=== PATIENT | female | born 1975 | race American Indian/Alaskan Native ===

== ENCOUNTER 2022-09-15 11:23 | Outpatient (CLI) | payer BC | END 2022-09-15 23:59 | disposition home or self-care (01) | LOC: LAB SPEC 11:23 | PROVIDERS: ATTEND Orthopaedic Surgery | DX: M71.062 Abscess of bursa, left knee (principal) | CPT/HCPCS: 87070; 87075 ==

== ENCOUNTER 2022-10-26 08:11 | Inpatient (IN) | payer BC, OTHER ==
[2022-10-24 14:28] LABS: BASOPHILS # (AUTO) 0.1 X10'3 (0-0.2); EOSINOPHILS # (AUTO) 0.1 X10'3 (0-0.9); EOSINOPHILS % (AUTO) 1.9 % (0-6); LYMPHOCYTES # (AUTO) 1.9 X10'3 (1.1-4.8); LYMPHOCYTES % (AUTO) 29.9 % (21-51); MEAN CORPUSCULAR HEMOGLOBIN 25.2 PG (27.0-31.0); MEAN CORPUSCULAR HGB CONC 31.8 g/dL (33.0-36.5); MEAN CORPUSCULAR VOLUME 79.3 FL (78-98); MEAN PLATELET VOLUME 7.5 FL (7.4-10.4); MONOCYTES # (AUTO) 0.5 X10'3 (0-0.9); MONOCYTES % (AUTO) 8.9 % (2-12); NEUTROPHILS # (AUTO) 3.6 X10'3 (1.8-7.7); NEUTROPHILS % (AUTO) 58.3 % (42-75); PRE OP HEMATOCRIT 31.2 % (35.0-45.0); PRE OP PLATELET COUNT 350 X10'3 (140-440); RED BLOOD COUNT 3.94 X10'6 (4.20-5.60); RED CELL DISTRIBUTION WIDTH 19.4 % (11.5-14.5)
[2022-10-24 14:31] LABS: PRE OP HEMOGLOBIN 9.9 g/dL (12.0-16.0)
[2022-10-24 14:43] LABS: HCG SERUM QL NEGATIVE
[2022-10-24 14:46] LABS: ALBUMIN 3.7 G/DL (3.4-5.0); ALBUMIN/GLOBULIN RATIO 0.9 (1.1-1.5); ALKALINE PHOSPHATASE 80 IU/L (46-116); BLOOD UREA NITROGEN 11 MG/DL (7-18); BUN/CREATININE RATIO 17.7 (10.0-20.0); CALCIUM 8.6 MG/DL (8.5-10.1); CHLORIDE 105 MMOL/L (99-107); CREATININE 0.62 MG/DL (0.40-0.90); PRE OP ALT 29 U/L (30-65); PRE OP ANION GAP 12 (8-16); PRE OP AST 27 U/L (10-37); PRE OP BILIRUB, TOTAL 0.3 MG/DL (0.0-1.0); PRE OP GLUCOSE 101 MG/DL (70-104); PRE OP POTASSIUM 3.9 MMOL/L (3.4-5.1); PRE OP SODIUM 140 MMOL/L (135-145); TOTAL CARBON DIOXIDE 23.3 MMOL/L (24-32); TOTAL PROTEIN 7.8 G/DL (6.4-8.2); eGFR > 90 ML/MIN
[2022-10-24 15:09] LABS: ANISOCYTOSIS 2+; MICROCYTOSIS 1+; PLATELET ESTIMATE NORMAL
[2022-10-24 15:11] LABS: LARGE PLATELETS FEW
[~2022-10-26] VITALS: Ht 170.2 cm; Wt 122.0 kg
[2022-10-26] VITALS (15 sets, daily range): BP systolic 143–187; BP diastolic 51–107
[~2022-10-26 08:11] MED LIST: CLIN300C54 PO; MUPI15CR12 BOTHNARES; OREG1500 PO; famotidine 20mg tablet PO ONE; ringers solution, lacted 1,000 ML IV SCH
[2022-10-26] MEDS ORDERED: labetalol 20mg/4ml (5mg/ml) syringe IV PRN (09:00)
[2022-10-26] MEDS ORDERED: fentaNYL/PF 50MCG/1 ML 2ML syringe IV PRN (09:00)
[2022-10-26] MEDS ORDERED: ringers solution, lacted 1,000 ML IV SCH (09:00)
[2022-10-26] MEDS ORDERED: ondansetron/PF 4mg/2ml inj IV PRN (09:00)
[2022-10-26] MEDS ORDERED: hydrALAZINE 20mg/ml inj. IV PRN (09:00)
[2022-10-26] MEDS ORDERED: morphine 2 MG/ML inj. syringe IV PRN (09:00)
[2022-10-26] MEDS ORDERED: morphine 4 MG/ML inj SYRINge IV PRN (09:00)
--- NOTE | 2022-10-26 09:00 | NUR ---
PT STATES HX OF HTN WITH PREVIOUS SURGERIES IN THE PRE-OP AREA, "NERVOUS". RETURNS TO NORMAL POST OP Addendum: 10/26/22 at 0958 by Polina Wilson RN Amended: Links added.
[2022-10-26] MEDS ORDERED: ROPIVAcaine 0.5% (5mg/ml) 30ml vial ONE ×2 (10:08→11:03)
[2022-10-26] MEDS ORDERED: epiNEPHrine 1 mg/ml inj ONE (10:08)
[2022-10-26] MEDS ORDERED: vancomycin 1,000mg inj ONE (10:08)
[2022-10-26] MEDS ORDERED: morphine 10mg/ml inj. ONE (10:19)
[2022-10-26] MEDS ORDERED: gentamicin 40 MG/1 ML inj ONE (10:20)
[2022-10-26] MEDS ORDERED: tobramycin 40mg/ml inj ONE (10:20)
[2022-10-26] MEDS ORDERED: ketorolac trometh. 30mg/ml inj. ONE (11:02)
[2022-10-26] MEDS ORDERED: MIDAZolam 1 MG/ML 5ML VIAL ONE (11:02)
[2022-10-26] MEDS ORDERED: ondansetron/PF 4mg/2ml inj ONE (11:02)
[2022-10-26] MEDS ORDERED: dexamethasone sod phosphate 4mg/ml inj. ONE (11:02)
[2022-10-26] MEDS ORDERED: propofol inj 20 ML IV ONE (11:02)
[2022-10-26] MEDS ORDERED: LIDOcaine 2% (20mg/ml) 5ml vial ONE (11:02)
[2022-10-26] MEDS ORDERED: fentaNYL/PF 50MCG/1 ML 2ML syringe ONE (11:02)
[2022-10-26] MEDS ORDERED: acetaminophen 1,000mg/100ml IV 100 ML IV ONE (11:03)
[2022-10-26] MEDS ORDERED: sevoflurane 250ml liquid IH ONE (11:05)
[2022-10-26] MEDS ORDERED: labetalol 20mg/4ml (5mg/ml) syringe IV ONE (11:22)
--- NOTE | 2022-10-26 13:30 | NUR ---
Received from OR via BED, accompanied by Anesthesiologist and report given by Anesthesiologist. PATIENT WAKING UP, c/o PAIN see emar, V/S WNL, SCD ON, 20G TO LUE, left knee dressing w/ wv at 75suction cdi with no leaks detected w/ immobilizer on
[2022-10-26] MEDS ORDERED: oxyCODONE IR 5mg (immed. release) tablet PO PRN (13:35)
[2022-10-26] MEDS ORDERED: diphenhydrAMINE 25mg capsule PO PRN ×2 (13:35)
[2022-10-26] MEDS ORDERED: naloxone 0.4 mg/ml inj IV PRN (13:35)
[2022-10-26] MEDS ORDERED: magnesium hydroxide 30ml (MOM) UD suspension PO PRN (13:35)
[2022-10-26] MEDS ORDERED: acetaminophen 325mg tablet PO PRN (13:35)
[2022-10-26] MEDS ORDERED: bisacodyl 10mg suppository rectal RC PRN (13:35)
[2022-10-26] MEDS ORDERED: HYDROmorphone inj. 0.5 MG/0.5 ML DISP.SYRIN IV PRN (13:35)
[2022-10-26] MEDS: fentaNYL/PF 50MCG/1 ML 2ML syringe IV PRN ×2 (13:37→13:43)
--- NOTE | 2022-10-26 14:15 | NUR ---
PATIENT HAS MET ALL CRITERIA FOR TRANSFER TO THE SURGICAL FLOOR. VSS. DRESSINGS INTACT. BED LOW, CALL LIGHT PRESENT AND 2 RAILS UP. RN PRESENT TO ACCEPT CARE OF PATIENT AND REPORT HAS BEEN CALLED. ALL QUESTIONS ANSWERED TO ACCEPTING RN. Addendum: 10/26/22 at 1427 by Ulysses Hernandez RN Amended: Links added.
--- NOTE | 2022-10-26 14:18 | NUR ---
Received patient to room 352 via bed accompanied by x1 staff and spouse. Patient alert and oriented with c/o pain 5/10 to right knee. Right knee wound vac dressing CDI, suctioning at 75 with no issues, right knee immobilizer on. Post op vitals initiated. Patient oriented to room and call light. Call light placed within reach.
[2022-10-26] MEDS: acetaminophen 325mg tablet PO SCH ×2 (14:32→19:25)
[2022-10-26] MEDS: oxyCODONE IR 5mg (immed. release) tablet PO PRN ×2 (14:32→22:51)
--- NOTE | 2022-10-26 18:15 | NUR ---
Problems reprioritized. Patient report given, questions answered & plan of care reviewed with NGOC Vera.
--- NOTE | 2022-10-26 18:43 | NUR ---
Patient in room [facility] 352. I have received report from Zo GROSSMAN and had the opportunity to ask questions and assume patient care.
[2022-10-26] MEDS: HYDROmorphone 1 mg/ml syringe IV PRN (19:17)
[2022-10-26] MEDS: potassium Cl 20mEq in NS 1,000 ML IV SCH (19:20)
[2022-10-26] MEDS: vancomycin/NS 1 GM ADD-VANTAGE 250 ML IV SCH (19:20)
[2022-10-26] MEDS: ondansetron/PF 4mg/2ml inj IV PRN (19:31)
[2022-10-26] MEDS: sennosides 8.6mg tablet PO SCH (22:50)
[2022-10-27] MEDS: acetaminophen 325mg tablet PO SCH ×4 (02:49→19:31)
[2022-10-27] MEDS: HYDROmorphone 1 mg/ml syringe IV PRN ×2 (02:50→11:33)
[2022-10-27] MEDS: potassium Cl 20mEq in NS 1,000 ML IV SCH ×2 (02:50→05:35)
[2022-10-27] MEDS: ondansetron/PF 4mg/2ml inj IV PRN ×2 (02:55→12:11)
--- NOTE | 2022-10-27 04:41 | NUR ---
patient up to BR x2, medicated as per EMAR for pain and nausea with good result. continues with knee immobilizer, VSS. will continue to monitor
--- NOTE | 2022-10-27 06:12 | NUR ---
Problems reprioritized. Patient report given, questions answered & plan of care reviewed with Zo GROSSMAN.
[2022-10-27 06:57] VITALS: BP 145/80
[2022-10-27] MEDS: oxyCODONE IR 5mg (immed. release) tablet PO PRN ×3 (07:53→19:33)
[2022-10-27] MEDS: vancomycin/NS 1 GM ADD-VANTAGE 250 ML IV SCH ×2 (08:10→19:31)
[2022-10-27] MEDS: aspirin 325mg tablet PO SCH (08:11)
[2022-10-27 11:38] VITALS: BP 166/102
[2022-10-27 11:53] LABS: C-REACTIVE PROTEIN 0.05 MG/DL (0.0-0.5)
[2022-10-27] MEDS ORDERED: metoclopramide 5 mg/ml inj IV PRN (14:40)
[2022-10-27] MEDS: proCHLORperazine 10 MG/2 ml inj IV PRN (14:56)
[2022-10-27 15:03] LABS: BASOPHILS # (AUTO) 0.1 X10'3 (0-0.2); BASOPHILS % (AUTO) 0.8 % (0-1); EOSINOPHILS % (AUTO) 0.1 % (0-6); HEMATOCRIT 26.6 % (35.0-45.0); HEMOGLOBIN 8.3 g/dl (12.0-16.0); LYMPHOCYTES # (AUTO) 2.1 X10'3 (1.1-4.8); LYMPHOCYTES % (AUTO) 22.7 % (21-51); MEAN CORPUSCULAR HEMOGLOBIN 24.8 PG (27.0-31.0); MEAN CORPUSCULAR HGB CONC 31.2 g/dL (33.0-36.5); MEAN CORPUSCULAR VOLUME 79.5 FL (78-98); MEAN PLATELET VOLUME 8.1 FL (7.4-10.4); MONOCYTES # (AUTO) 0.8 X10'3 (0-0.9); MONOCYTES % (AUTO) 8.5 % (2-12); NEUTROPHILS # (AUTO) 6.3 X10'3 (1.8-7.7); NEUTROPHILS % (AUTO) 67.9 % (42-75); PLATELET COUNT 296 X10'3 (140-440); RED BLOOD COUNT 3.34 X10'6 (4.20-5.60); RED CELL DISTRIBUTION WIDTH 19.2 % (11.5-14.5); WHITE BLOOD COUNT 9.2 X10'3 (4.5-11.0)
[2022-10-27 15:08] LABS: ALANINE AMINOTRANSFERASE 23 U/L (12-78); ALBUMIN 3.3 G/DL (3.4-5.0); ALKALINE PHOSPHATASE 56 IU/L (46-116); ANION GAP 9 (8-16); ASPARTATE AMINO TRANSFERASE 11 U/L (10-37); BILIRUBIN,TOTAL 0.2 MG/DL (0.1-1.0); BLOOD UREA NITROGEN 9 MG/DL (7-18); BUN/CREATININE RATIO 12.5 (10.0-20.0); CALCIUM 8.4 MG/DL (8.5-10.1); CHLORIDE 108 MMOL/L (99-107); CREATININE 0.72 MG/DL (0.40-0.90); GLUCOSE 102 MG/DL (70-104); POTASSIUM 4.1 MMOL/L (3.5-5.1); SODIUM 140 MMOL/L (135-145); TOTAL CARBON DIOXIDE 23.5 MMOL/L (24-32); TOTAL PROTEIN 6.7 G/DL (6.4-8.2); eGFR 88 ML/MIN
[2022-10-27 15:39] LABS: ANISOCYTOSIS 2+; MICROCYTOSIS 1+; PLATELET ESTIMATE NORMAL
[2022-10-27 15:40] LABS: SCHISTOCYTES FEW
[2022-10-27 15:41] LABS: ROULEAUX 1+
--- NOTE | 2022-10-27 18:42 | NUR ---
Problems reprioritized. Patient report given, questions answered & plan of care reviewed with Lenoie, RN.
[2022-10-27] MEDS: celeCOXIB 100mg capsule PO SCH (19:32)
[2022-10-27 22:00] VITALS: BP 155/87
[2022-10-27] MEDS: sennosides 8.6mg tablet PO SCH (22:03)
--- NOTE | 2022-10-27 23:47 | NUR ---
Pt. is awake alert oriented in good spirits visitor at bedside. Pt. has a left knee wound vac and a left arm midline. Left foot pedal pulse palpable equal to right foot. C/o some numbness in left inner leg states PCP is aware. Ambulatory with assistance without complaints. Takes po meds and nutrition well. Plan; Pt. is anticipating going home soon with Midline and IV antibiotics.
[2022-10-28] MEDS: proCHLORperazine 10 MG/2 ml inj IV PRN ×2 (00:41→20:28)
[2022-10-28] MEDS: oxyCODONE IR 5mg (immed. release) tablet PO PRN ×2 (00:42→10:48)
[2022-10-28 01:03] VITALS: BP 155/83
[2022-10-28] MEDS: acetaminophen 325mg tablet PO SCH ×2 (01:12→08:57)
--- NOTE | 2022-10-28 06:00 | NUR ---
Bp rechecked after BRP and pain med given for 12/10 pain IV is converted to SL.. BP 179/94. Will request BP meds if taking at home. Reported to next shift to follow up with MD.
[2022-10-28] MEDS: HYDROmorphone 1 mg/ml syringe IV PRN ×2 (06:03→20:28)
[2022-10-28 06:52] LABS: BASOPHILS % (AUTO) 0.6 % (0-1); EOSINOPHILS # (AUTO) 0.1 X10'3 (0-0.9); EOSINOPHILS % (AUTO) 1.3 % (0-6); HEMATOCRIT 24.9 % (35.0-45.0); HEMOGLOBIN 7.9 g/dl (12.0-16.0); LYMPHOCYTES # (AUTO) 1.9 X10'3 (1.1-4.8); LYMPHOCYTES % (AUTO) 23.9 % (21-51); MEAN CORPUSCULAR HEMOGLOBIN 25.5 PG (27.0-31.0); MEAN CORPUSCULAR HGB CONC 31.8 g/dL (33.0-36.5); MEAN CORPUSCULAR VOLUME 80.2 FL (78-98); MEAN PLATELET VOLUME 7.5 FL (7.4-10.4); MONOCYTES # (AUTO) 0.6 X10'3 (0-0.9); NEUTROPHILS # (AUTO) 5.4 X10'3 (1.8-7.7); NEUTROPHILS % (AUTO) 67.2 % (42-75); PLATELET COUNT 246 X10'3 (140-440); RED BLOOD COUNT 3.11 X10'6 (4.20-5.60); RED CELL DISTRIBUTION WIDTH 19.5 % (11.5-14.5)
--- NOTE | 2022-10-28 06:55 | NUR ---
Patient in room [facility] 352. I have received report from mandie rn and had the opportunity to ask questions and assume patient care.
[2022-10-28 06:58] VITALS: BP 179/94
[2022-10-28 07:51] LABS: ALANINE AMINOTRANSFERASE 26 U/L (12-78); ALBUMIN/GLOBULIN RATIO 0.9 (1.1-1.5); ALKALINE PHOSPHATASE 59 IU/L (46-116); ANION GAP 8 (8-16); ASPARTATE AMINO TRANSFERASE 18 U/L (10-37); BILIRUBIN,TOTAL 0.3 MG/DL (0.1-1.0); BLOOD UREA NITROGEN 10 MG/DL (7-18); BUN/CREATININE RATIO 15.9 (10.0-20.0); CALCIUM 8.2 MG/DL (8.5-10.1); CHLORIDE 106 MMOL/L (99-107); CREATININE 0.63 MG/DL (0.40-0.90); GLUCOSE 80 MG/DL (70-104); POTASSIUM 3.8 MMOL/L (3.5-5.1); SODIUM 139 MMOL/L (135-145); TOTAL CARBON DIOXIDE 24.7 MMOL/L (24-32); TOTAL PROTEIN 6.2 G/DL (6.4-8.2); eGFR > 90 ML/MIN
[2022-10-28] MEDS: vancomycin/NS 1 GM ADD-VANTAGE 250 ML IV SCH (08:56)
[2022-10-28] MEDS: celeCOXIB 100mg capsule PO SCH ×2 (08:57→20:28)
[2022-10-28] MEDS: aspirin 325mg tablet PO SCH (08:57)
[2022-10-28 10:00] VITALS: BP 180/102
[2022-10-28] MEDS ORDERED: hydrALAZINE 20mg/ml inj. IV PRN ×2 (12:25→17:40)
[2022-10-28] MEDS ORDERED: acetaminophen 325mg tablet PO PRN (13:35)
[2022-10-28] MEDS ORDERED: hydrALAZINE 20mg/ml inj. IV ONE (14:15)
[2022-10-28 15:24] LABS: CREATININE 0.76 MG/DL (0.40-0.90); VANCOMYCIN,TROUGH 11.6 UG/ML (6.0-14.0); eGFR 82 ML/MIN
[2022-10-28] MEDS ORDERED: levoFLOXACIN-Levaquin 750MG/D5 150 ML IV STA (15:49)
[2022-10-28 16:00] VITALS: BP 203/105
[2022-10-28] MEDS ORDERED: enalaprilat dihydrate 2.5mg/2ml vial IV SCH (16:20)
[2022-10-28] MEDS ORDERED: LORazepam 2 mg/ml vial IV PRN (16:20)
[2022-10-28] MEDS: amLODIPine 5mg tablet PO SCH (16:46)
[2022-10-28 17:54] VITALS: BP 150/86
--- NOTE | 2022-10-28 20:07 | NUR ---
NOTIFIED DR BATISTA RE: PT BLOOD PRESSURE ELEVATED IN THE AM 180/102, HE ORDERED [address] BATISTA CAME INTO ROUND ON PT BP CONT TO BE ELEVATED 174/101. ORDERED ANOTHER 5MG HYDRALAZINE. BP CONT TO BE ELEVATED 203/105, NOTIFIED DR BATISTA. HE GOT HOSPITALIST ON BOARD, ORDERS FOR BP MEDS AND ATIVAN WERE GIVEN. PTS BP DECREASED TO 150/86. NOTIFIED
[2022-10-28] MEDS: sennosides 8.6mg tablet PO SCH (20:28)
[2022-10-28 22:00] VITALS: BP 141/77
[2022-10-29 06:26] LABS: BASOPHILS % (AUTO) 0.5 % (0-1); EOSINOPHILS # (AUTO) 0.1 X10'3 (0-0.9); EOSINOPHILS % (AUTO) 1.6 % (0-6); HEMATOCRIT 26.4 % (35.0-45.0); HEMOGLOBIN 8.4 g/dl (12.0-16.0); LYMPHOCYTES # (AUTO) 1.6 X10'3 (1.1-4.8); LYMPHOCYTES % (AUTO) 17.7 % (21-51); MEAN CORPUSCULAR HEMOGLOBIN 25.4 PG (27.0-31.0); MEAN CORPUSCULAR HGB CONC 31.7 g/dL (33.0-36.5); MEAN CORPUSCULAR VOLUME 80.1 FL (78-98); MEAN PLATELET VOLUME 7.8 FL (7.4-10.4); MONOCYTES # (AUTO) 0.9 X10'3 (0-0.9); MONOCYTES % (AUTO) 9.7 % (2-12); NEUTROPHILS # (AUTO) 6.4 X10'3 (1.8-7.7); NEUTROPHILS % (AUTO) 70.5 % (42-75); PLATELET COUNT 274 X10'3 (140-440); RED CELL DISTRIBUTION WIDTH 19.5 % (11.5-14.5)
[2022-10-29 06:38] LABS: ANION GAP 10 (8-16); BLOOD UREA NITROGEN 10 MG/DL (7-18); BUN/CREATININE RATIO 15.9 (10.0-20.0); CALCIUM 8.3 MG/DL (8.5-10.1); CHLORIDE 103 MMOL/L (99-107); CREATININE 0.63 MG/DL (0.40-0.90); GLUCOSE 89 MG/DL (70-104); POTASSIUM 3.5 MMOL/L (3.5-5.1); SODIUM 140 MMOL/L (135-145); TOTAL CARBON DIOXIDE 26.8 MMOL/L (24-32); eGFR > 90 ML/MIN
[2022-10-29 06:39] LABS: ALANINE AMINOTRANSFERASE 23 U/L (12-78); ALBUMIN 2.9 G/DL (3.4-5.0); ALBUMIN/GLOBULIN RATIO 0.8 (1.1-1.5); ALKALINE PHOSPHATASE 68 IU/L (46-116); ASPARTATE AMINO TRANSFERASE 12 U/L (10-37); BILIRUBIN,TOTAL 0.5 MG/DL (0.1-1.0); TOTAL PROTEIN 6.4 G/DL (6.4-8.2)
[2022-10-29 07:00] VITALS: BP 178/89
--- NOTE | 2022-10-29 07:00 | NUR ---
Patient in room [facility] 352. I have received report from Clarissa GROSSMAN and had the opportunity to ask questions and assume patient care.
[2022-10-29 07:05] LABS: ANISOCYTOSIS 2+; PLATELET ESTIMATE NORMAL; POLYCHROMASIA FEW; STOMATOCYTES 1+
[2022-10-29 08:00] VITALS: BP 167/86
[2022-10-29] MEDS: amLODIPine 5mg tablet PO SCH (08:15)
[2022-10-29] MEDS: celeCOXIB 100mg capsule PO SCH (08:15)
[2022-10-29] MEDS: aspirin 325mg tablet PO SCH (08:15)
[2022-10-29] MEDS ORDERED: AMLO5TAB4 PO (09:39)
[2022-10-29] MEDS: oxyCODONE IR 5mg (immed. release) tablet PO PRN (10:06)
[2022-10-29] MEDS ORDERED: LEVO-65 PO (10:30)
[2022-10-29 11:01] VITALS: BP 166/85
--- NOTE | 2022-10-29 12:00 | NUR ---
Received discharged orders, Reviewed with Patient and family. Escorted Patient and family to lobby with belongings.
== END 2022-10-29 11:50 | disposition home health service (06) | DRG 465 ==
LOC: PAS IN 08:11 → SUR 3N 14:19
PROVIDERS: ADMIT Orthopaedic Surgery; ATTEND Orthopaedic Surgery
PROC: 0JBP0ZZ Excision of Left Lower Leg Subcutaneous Tissue and Fascia, Open Approach (ICD-10-PCS; 2022-10-26)
PROC: 3E0U029 Introduction of Other Anti-infective into Joints, Open Approach (ICD-10-PCS; 2022-10-26)
PROC: 3E0T3BZ Introduction of Anesthetic Agent into Peripheral Nerves and Plexi, Percutaneous Approach (ICD-10-PCS; 2022-10-26)
PROC: 3E0T33Z Introduction of Anti-inflammatory into Peripheral Nerves and Plexi, Percutaneous Approach (ICD-10-PCS; 2022-10-26)
PROC: 0SPD04Z Removal of Internal Fixation Device from Left Knee Joint, Open Approach (ICD-10-PCS; principal; 2022-10-26 11:05)
PROC: 05HY33Z Insertion of Infusion Device into Upper Vein, Percutaneous Approach (ICD-10-PCS; 2022-10-27)
DX: T84.54XA Infection and inflammatory reaction due to internal left knee prosthesis, initial encounter (principal); B95.62 Methicillin resistant Staphylococcus aureus infection as the cause of diseases classified elsewhere; I10 Essential (primary) hypertension; F41.9 Anxiety disorder, unspecified; Y83.1 Surgical operation with implant of artificial internal device as the cause of abnormal reaction of the patient, or of later complication, without mention of misadventure at the time of the procedure; Y92.89 Other specified places as the place of occurrence of the external cause; Z79.899 Other long term (current) drug therapy; Z91.040 Latex allergy status
CPT/HCPCS: Z7506; Z7508; 36410; 36415; 76942; 80053; 80202; 82565; 82948; 84145; 84703; 85008; 85025; 85651; 86140; 87070; 87075; 87081; 87176; 93005; 97110; 97161; 97530; A4215; A6253; A6258; A6446; A6449; A7000; C1713; C1751; G0378; J0131; J0171; J0360; J0780; J1100; J1170; J1580; J1885; J1956; J2060; J2250; J2274; J2405; J2704; J2795; J3010; J3260; J3370; J3480; J3490; J7120; L1832